=== PATIENT | male | born 1960 | race Caucasian/White ===

== ENCOUNTER 2018-03-15 16:53 | Emergency (ER) | payer OTHER ==
[~2018-03-15] VITALS: Ht 170.2 cm; Wt 68.0 kg
[2018-03-15 17:17] VITALS: BP 135/80
--- NOTE | 2018-03-15 18:23 | RADIOLOGY REPORT ---
EXAMINATION: XR HAND, LEFT CLINICAL INFORMATION: Crush injury and laceration of second digit. COMPARISON: None TECHNIQUE: PA, lateral, and oblique views of the left hand. FINDINGS: Bones have normal alignment within the hand and wrist. No acute fracture or subluxation. The joint spaces are well-preserved. A bandage overlies the second digit and partially interferes with evaluation of the soft tissues. There are irregular soft tissue defects/lacerations of the second digit. No radiopaque foreign body. IMPRESSION: - Soft tissue injury of the second digit. - However, no evidence of fracture or malalignment.
--- NOTE | 2018-03-15 19:09 | ED HAND/WRIST INJURY COMPLAINT ---
History of Present Illness General Chief Complaint: Laceration Procedure Stated Complaint: +LAC TO LFINGER, SMASHED ON A LOG, NOT UTD TEATNUS Source: patient Exam Limitations: no limitations Vital Signs & Intake/Output Vital Signs & Intake/Output Vital Signs Date Time Temp Pulse Resp B/P B/P Pulse O2 O2 Flow FiO2 Mean Ox Delivery Rate 03/15 2019 Room Air 03/15 1717 97.5 77 16 135/80 98 Room Air ED Intake and Output 03/16 0000 03/15 1200 Intake Total Output Total Balance Patient 150 lb Weight Weight Reported by Patient Measurement Method Allergies Coded Allergies: Penicillins (UNKNOWN PER PT 03/15/18) Triage Note: 57 Y/O MALE PRESENTS C/O LACERATION TO L INDEX FINGER, CUT ON WOOD OIL [employer] AND [employer] REP. BLEEDING NOTED. UNKNOWN LAST TETANUS. 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 yes Occurred: just prior to arrival Duration: hour(s): Timing: single episode today Injury Environment: home Severity: moderate HPI: 49-year-old male presents to emergency department complaining of laceration to left index finger sustained at home prior to arrival. Patient states that he crushed left index finger between a log and a tree. Patient sustained laceration, bleeding controlled prior to arrival. Patient is unsure when his last tetanus vaccine was. No difficulty with range of motion at this time. (Herlinda HOOD,Dionne Carroll) Past History Travel History Traveled to [place] past 21 day No Medical History Any Pertinent Medical History? see below for history Neurological: NONE EENT: NONE Cardiovascular: NONE Respiratory: asthma Gastrointestinal: NONE Hepatic: NONE Renal: NONE Musculoskeletal: NONE Psychiatric: NONE Endocrine: NONE Blood Disorders: NONE Cancer(s): NONE [employer]MENT[employer]ER/Reproductive: NONE Surgical History Surgical History: non-contributory Psychosocial History What is your primary language Bermudian Tobacco Use: Never used Family History Hx Contributory? No (Dionne Almonte) Review of Systems Review of Systems Constitutional: Reports: no symptoms. EENTM: Reports: no symptoms. Respiratory: Reports: no symptoms. Cardiovascular: Reports: no symptoms. GI: Reports: no symptoms. Genitourinary: Reports: no symptoms. Musculoskeletal: Reports: see HPI. Skin: Reports: see HPI. Neurological/Psychological: Reports: no symptoms. Hematologic/Endocrine: Reports: no symptoms. Immunologic/Allergic: Reports: no symptoms. All Other Systems: Reviewed and Negative (Herlinda HOOD,Dionne Carroll) Physical Exam Physical Exam General Appearance: well developed/nourished, no apparent distress, alert, awake Head: atraumatic, normal appearance Eyes: Bilateral: normal appearance. Ears, Nose, Throat: hearing grossly normal Neck: normal inspection, supple, full range of motion Cardiovascular/Respiratory: no respiratory distress Shoulder Left: normal range of motion, normal inspection Shoulder Right: normal range of motion, normal inspection Elbow Left: normal range of motion, normal inspection Elbow Right: normal range of motion, normal inspection Forearm Left: normal range of motion, normal inspection Forearm Right: normal range of motion, normal inspection Wrist Left: normal range of motion, normal inspection Wrist Right: normal range of motion, normal inspection Hand Left: 2 Centimeter irregular laceration to palmar aspect of left index finger, no tendonvisualized, range of motion intact Hand Right: normal inspection, normal range of motion Neurologic/Tendon: normal sensation, normal motor functions, normal tendon functions Skin: laceration (Dionne Almonte) Progress Differential Diagnosis: fracture, sprain, laceration, tendon injury Plan of Care: X-rays are negative for acute fracture. Laceration closed using sutures, no tendon was visualized. Patient has intact range of motion, low suspicion for acute injury at this time. Patient placed in finger splint and he was educated on signs and symptoms of skin infection. He will return for suture removal in 7 -10 days. The patient agrees with the plan of care. Diagnostic Imaging: Viewed by Me: Radiology Read. Discussed w/RAD: Radiology Read. Radiology Impression: PATIENT: YARIEL THAYER PRESENT AGE: 57 PATIENT ACCOUNT NO: [id number] : 58 LOCATION: [facility] ORDERING PHYSICIAN: Won HOOD SERVICE DATE: 03/15/18 EXAM TYPE: RAD - XRY- HAND, LEFT EXAMINATION: XR HAND, LEFT CLINICAL INFORMATION: Crush injury and laceration of second digit. COMPARISON: None TECHNIQUE: PA, lateral, and oblique views of the left hand. FINDINGS: Bones have normal alignment within the hand and wrist. No acute fracture or subluxation. The joint spaces are well- preserved. A bandage overlies the second digit and partially interferes with evaluation of the soft tissues. There are irregular soft tissue defects/ lacerations of the second digit. No radiopaque foreign body. IMPRESSION: - Soft tissue injury of the second digit. - However, no evidence of fracture or malalignment. DICTATED BY: Carlos Agee MD DATE/TIME DICTATED:03/15/181816 MANAGER PLACEMENT:DERICK DATE/TIME TRANSCRIBED:03/15/181816 CONFIDENTIAL, DO NOT COPY WITHOUT APPROPRIATE AUTHORIZATION. <Electronically signed in Other Vendor System> SIGNED BY: Carlos Agee MD 03/15/18 141 (Dionne Almonte) Departure Departure Disposition: HOME OR SELF CARE Condition: Stable Clinical Impression Primary Impression: Finger laceration Qualifiers: Encounter type: initial encounter Finger: index finger Damage to nail status: without damage Foreign body presence: without foreign body Laterality: left Qualified Code: S61.211A - Laceration without foreign body of left index finger without damage to nail, initial encounter Referrals: Won Alberto MD (PCP/Family) Additional Instructions: Monitor for signs of skin infection including redness, swelling, warmth or increasing pain. With any of the symptoms was return for further evaluation. Otherwise return in 7-10 days for removal of stitches. Wear finger splint while you are active to prevent the stitches from breaking. Please note that there might be incidental findings in your evaluation that are unrelated to the current emergency department visit. Please notify your primary care doctor about this emergency department visit in order to obtain and review all of the testing performed so that these incidental findings can be monitored as needed. If you had an x-ray performed, please understand that some fractures may not be seen on the initial set of x-rays. If your symptoms persist you might need a repeat set of x-rays to check for such a fracture. If you had a laceration evaluated, please understand that foreign bodies such as glass or wood may not be visible to the naked eye or on plain x-rays. If the wound becomes red, swollen, increasingly more painful or if there is any drainage from the wound, please have it reevaluated by a physician for the possibility of a retained foreign body. If you're unable to follow up as outlined in the discharge instructions please return to the emergency department. Thank you for choosing the [facility] Emergency Department for your care. It was a pleasure to serve you today. Departure Forms: Customer Survey General Discharge Information (Dionne Almontele) PA/TENNIS INSTRUCTOR Co-Sign Statement Statement: ED Attending supervision documentation- I saw and evaluated the patient. I have also reviewed all the pertinent lab results and diagnostic results. I agree with the findings and the plan of care as documented in the PA's/TENNIS INSTRUCTOR's documentation. x I have reviewed the ED Record and agree with the PA's/TENNIS INSTRUCTOR's documentation. [] Additions or exceptions (if any) to the PAs/TENNIS INSTRUCTOR's note and plan are summarized below: [] (Kira SMILEY,Sergio) Procedures Laceration/Wound Repair Laceration/Wound Repair: Wound Location: left index finger Wound's Depth, Shape: irregular Wound Length (cm): 2 Wound Explored: irrigated extensively Irrigated w/ Saline (ccs): 300 Betadine Prep? Yes Anesthesia: digit block, 1% lidocaine Volume Anesthetic (ccs): 5 Wound Repaired With: sutures Suture Size/Type: 4:0, nylon Number of Sutures: 7 Sterile Dressing Applied: Yes Splint Applied? Yes Type of Splint Applied: finger Date of Last Tetanus: 03/15/18 Tetanus Status: up to date Progress: Procedure performed by PA student with my direct supervision. Patient tolerated procedure well. (Dionne Almonte)
== END 2018-03-15 20:09 ==
LOC: ERH 16:53
DX: S61.211A Laceration without foreign body of left index finger without damage to nail, initial encounter (principal); W23.0XXA Caught, crushed, jammed, or pinched between moving objects, initial encounter; Y92.009 Unspecified place in unspecified non-institutional (private) residence as the place of occurrence of the external cause; Y93.89 Activity, other specified
CPT/HCPCS: 73130-LT; 90471; 90714; J2001